=== PATIENT | male | born 1925 | race Caucasian/White ===

== ENCOUNTER 2017-02-13 06:25 | Observation (INO) | payer MEDICARE, OTHER ==
[2017-02-13] MEDS ORDERED: FENTAnyl 50 MCG/ML VIAL (07:45)
[2017-02-13 07:50] LABS: INR 1.21; PROTIME 15.5 Sec (11.9-14.9); PT RATIO 1.2
[2017-02-13 07:51] LABS: PARTIAL THROMBOPLASTIN TIME 27.1 Sec (25.0-35.0)
[2017-02-13] MEDS ORDERED: ONDANSETRON 4 MG INJ IV (08:30)
[2017-02-13] MEDS ORDERED: ALBUTEROL 0.083% (NEB) 2.5 MG/3 ML AMP HHN (08:30)
[2017-02-13] MEDS ORDERED: MEPERIDINE 25 MG INJ IV (08:30)
[2017-02-13] MEDS ORDERED: PROPOFOL 20 ML (09:29)
[2017-02-13] MEDS ORDERED: SUCCINYLCHOLINE CHLORIDE 100 MG/5 ML SYG IV (09:29)
[2017-02-13] MEDS ORDERED: SUGAMMADEX SODIUM 200 MG/2 ML VIAL IV (09:29)
[2017-02-13] MEDS ORDERED: ROCURONIUM 50 MG INJ (09:29)
[2017-02-13] MEDS ORDERED: CEFAZOLIN 1 GM INJ (09:29)
[2017-02-13] MEDS ORDERED: ETOMIDATE 20 MG INJ (09:29)
[2017-02-13] MEDS ORDERED: LIDOCAINE 2% (SDV) 5 ML INJ (09:29)
[2017-02-13] MEDS ORDERED: DEXTROSE 5%-0.45% NACL 1,000 ML IV (09:49)
[2017-02-13] MEDS: METOCLOPRAMIDE 10 MG INJ IV (10:16)
[2017-02-13] MEDS: HYDROmorphONE (0.2 MG/ML) 10ML SYG IV ×2 (10:16→10:48)
[2017-02-13] MEDS: SOD CHLORIDE 0.9% 1,000 ML IV (11:00)
[2017-02-13] MEDS: FENTAnyl 50 MCG/ML VIAL IV (15:08)
[2017-02-13] MEDS: DIPHENHYDRAMINE 50 MG INJ IV (16:04)
[2017-02-13] MEDS: POLYETHYLENE GLYCOL 17 GM PACKET PO (16:30)
[2017-02-13] MEDS: OLOPATADINE 0.1% 5 ML OPH BOTH EYES (21:50)
[2017-02-13] MEDS: TAMSULOSIN (SR) 0.4 MG CAP PO (21:50)
[2017-02-13] MEDS: ATORVASTATIN 10 MG TAB PO (21:50)
[2017-02-13] MEDS: DRONEDARONE HYDROCHLORIDE 400 MG TAB PO (21:50)
[2017-02-13] MEDS: DOCUSATE SODIUM 100 MG CAP PO (21:53)
[2017-02-14] MEDS: SOD CHLORIDE 0.9% 1,000 ML IV (06:50)
[2017-02-14] MEDS: PANTOPRAZOLE (EC) 40 MG TAB PO (06:50)
[2017-02-14] MEDS: LEVOTHYROXINE 100 MCG TAB PO (06:50)
[2017-02-14] MEDS: METOPROLOL (XL) 25 MG TAB PO (09:45)
[2017-02-14] MEDS: OLOPATADINE 0.1% 5 ML OPH BOTH EYES (09:45)
[2017-02-14] MEDS: DOCUSATE SODIUM 100 MG CAP PO (09:45)
[2017-02-14] MEDS: POLYETHYLENE GLYCOL 17 GM PACKET PO (09:46)
[2017-02-14] MEDS: DRONEDARONE HYDROCHLORIDE 400 MG TAB PO (09:47)
[2017-02-14] MEDS: FINASTERIDE 5 MG TAB PO (09:47)
[2017-02-14 10:00] LABS: ADD MAN DIFF? NO
[2017-02-14 10:04] LABS: WHITE BLOOD COUNT 7.5 10^3/ul (4.8-10.8)
[2017-02-14 10:04] LABS: BASOPHILS % 0.3 % (0.0-2.0); EOSINOPHILS # 0.1 10^3/ul (0.0-0.5); EOSINOPHILS % 1.3 % (0.0-7.0); HEMATOCRIT 38.8 % (42.0-52.0); HEMOGLOBIN 12.3 g/dl (14.0-18.0); LYMPHOCYTES # 1.3 10^3/ul (0.8-2.9); LYMPHOCYTES % 16.8 % (15.0-51.0); MEAN CORPUSCULAR HGB CONC 31.7 g/dl (32.0-37.0); MEAN PLATELET VOLUME 10.4 fl (7.4-10.4); MONOCYTE # 0.9 10^3/ul (0.3-0.9); MONOCYTES % 12.5 % (0.0-11.0); NEUTROPHIL # 5.2 10^3/ul (1.6-7.5); NEUTROPHILS % 68.6 % (39.0-77.0); PLATELET COUNT 107 10^3/UL (140-415); RED BLOOD COUNT 3.84 10^6/ul (4.70-6.10)
[2017-02-14 10:25] LABS: ANION GAP 10 (8-16); BLOOD UREA NITROGEN 21 mg/dl (7-20); CALCIUM 8.4 mg/dl (8.4-10.2); CARBON DIOXIDE 31 mmol/L (21-31); CHLORIDE 104 mmol/L (97-110); CREATININE 1.08 mg/dl (0.61-1.24); GLUCOSE 122 mg/dl (70-220); POTASSIUM 3.4 mmol/L (3.5-5.1); SODIUM 142 mmol/L (135-144)
[2017-02-14 10:54] LABS: THYROID STIMULATING HORMONE 0.645 MIU/L (0.465-4.680)
== END 2017-02-14 15:10 | disposition home or self-care (01) ==
LOC: SDS 06:25 → MS4 02-14 00:01 → SDS 06:25 → REC 11:01
DX: C67.3 Malignant neoplasm of anterior wall of bladder (principal); E03.9 Hypothyroidism, unspecified; I48.0 Paroxysmal atrial fibrillation; K21.9 Gastro-esophageal reflux disease without esophagitis; N40.0 Benign prostatic hyperplasia without lower urinary tract symptoms; E78.5 Hyperlipidemia, unspecified; M19.90 Unspecified osteoarthritis, unspecified site; R60.0 Localized edema; H40.9 Unspecified glaucoma; I72.4 Aneurysm of artery of lower extremity; I25.10 Atherosclerotic heart disease of native coronary artery without angina pectoris; Z95.5 Presence of coronary angioplasty implant and graft; I25.2 Old myocardial infarction; E66.01 Morbid (severe) obesity due to excess calories; Z68.34 Body mass index [BMI] 34.0-34.9, adult; J44.9 Chronic obstructive pulmonary disease, unspecified
CPT/HCPCS: 52235; 71045; 74018; 80048; 84443; 85025; 85610; 85730; 86850; 86900; 86901; 88307; 93971; 99217; G0378